=== PATIENT | male | born 1980 | race Caucasian/White ===

== ENCOUNTER 2017-03-08 06:24 | Emergency (ER) | payer OTHER ==
[2017-03-08 07:00] VITALS: BP 123/91; PULSE 81; TEMP 98.6; BMI 27.5
[2017-03-08] MEDS ORDERED: IBUPROFEN 400 MG TABLET (FP) PO ONE ×2 (07:15→07:20)
--- NOTE | 2017-03-08 07:20 | PDOC ---
History of Present Illness - General Chief Complaint: Back Pain Stated Complaint: LOWER BACK PAIN Time Seen by Provider: 03/08/17 07:04 History Source: Patient Exam Limitations: No Limitations - History of Present Illness Initial Comments: 03/08/17 07:15 Patient is a 36M with no significant medical history here today complaining of lower back pain for the past hour. He was lifting a heavy bag at work when he says his back went out. He denies focal weakness, nausea, vomiting, fevers, chills, urinary incontinence/retention, and saddle anesthesia. He reports being able to ambulate after the injury, and is able to walk now. He denies chest pain , shortness of breath, headache, and abdominal pain. Patient reports that he came to the ED because his work requires him to. Past History - Past Medical History Allergies/Adverse Reactions: Allergies Allergy/AdvReac Type Severity Reaction Status Date / Time No Known Allergies Allergy Verified 05/25/12 10:25 Home Medications: Ambulatory Orders No Home Medications 0 dose .ROUTE UTDICT 05/25/12 - Immunization History Td Vaccination: Yes Immunization Up to Date: Yes - Psycho/Social/Smoking Cessation Hx Anxiety: No Suicidal Ideation: No Smoking Status: Yes Smoking History: Never smoked Have you smoked in the past 12 months: No Number of Cigarettes Smoked Daily: 0 Cigars Per Day: 0 Information on smoking cessation initiated: No Hx Alcohol Use: No Drug/Substance Use Hx: No Review of Systems - Review of Systems Comments:: 03/08/17 07:21 GENERAL/CONSTITUTIONAL: No fever or chills. No weakness. HEAD, EYES, EARS, NOSE AND THROAT: No change in vision. No ear pain or discharge. No sore throat. CARDIOVASCULAR: No chest pain or shortness of breath RESPIRATORY: No cough, wheezing, or hemoptysis. GASTROINTESTINAL: No nausea, vomiting, diarrhea or constipation. GENITOURINARY: No dysuria, frequency, or change in urination. MUSCULOSKELETAL: No joint or muscle swelling or pain. Positive for back pain. SKIN: No rash NEUROLOGIC: No headache, vertigo, loss of consciousness, or change in strength/ sensation. ENDOCRINE: No increased thirst. No abnormal weight change ALLERGIC/IMMUNOLOGIC: No hives or skin allergy. *Physical Exam - Vital Signs Last Vital Signs Temp Pulse Resp BP Pulse Ox 98.6 F 81 19 123/91 100 03/08/17 06:39 03/08/17 06:39 03/08/17 06:39 03/08/17 06:39 03/08/17 06:39 - Physical Exam Comments: 03/08/17 07:21 GENERAL: Awake, alert, and fully oriented, in no acute distress HEAD: No signs of trauma, normocephalic, atraumatic EYES: PERRLA, EOMI, sclera anicteric, conjunctiva clear ENT: Auricles normal inspection, hearing grossly normal, nares patent, oropharynx clear without exudates. Moist mucosa NECK: Normal ROM, supple, no lymphadenopathy, JVD, or masses BACK: Tender in paraspinal lumbar area LUNGS: No distress, speaks full sentences, clear to auscultation bilaterally HEART: Regular rate and rhythm, normal S1 and S2, no murmurs, rubs or gallops, peripheral pulses normal and equal bilaterally. ABDOMEN: Soft, nontender, normoactive bowel sounds. No guarding, no rebound. No masses EXTREMITIES: Normal inspection, Normal range of motion, no edema. No clubbing or cyanosis. NEUROLOGICAL: Cranial nerves II through XII grossly intact. Normal speech, normal gait, no focal sensorimotor deficits SKIN: Warm, Dry, normal turgor, no rashes or lesions noted. Medical Decision Making - Medical Decision Making 03/08/17 07:22 36M with no significant medical history here today complaining of back pain. No red flags, vital signs stable. Patient is ambulating and follow-up already planned. Will treat with ibuprofen and discharge. *DC/Admit/Observation/Transfer Diagnosis at time of Disposition: Back pain - Discharge Dispostion Disposition: HOME Condition at time of disposition: Good Admit: No - Patient Instructions Printed Discharge Instructions: DI for Low Back Pain
--- NOTE | 2017-03-08 07:23 | PDOC ---
Attending Attestation - Resident Resident Name: Alfred Queen - ED Attending Attestation I have performed the following: I have examined & evaluated the patient, The case was reviewed & discussed with the resident, I agree w/resident's findings & plan, Exceptions are as noted - HPI HPI: 03/08/17 07:21 36-year-old male with history of herniated lumbar disks presents with acute exacerbation of his lower back pain. Patient was at work when he lifted and bent his back and developed worsening chronic pain. Patient states that this is his usual lower back pain. Denies any urinary incontinence, bowel incontinence, anesthesia, numbness or weakness. Patient typically goes to his chiropractor for follow-up. He is wishing to go straight there right now. Came to the ED as his work requires him to do so. - Physicial Exam PE: 03/08/17 07:22 GENERAL: Awake, alert, and fully oriented. Mildly uncomfortable. HEAD: No signs of trauma EYES: PERRLA, EOMI, sclera anicteric, conjunctiva clear ENT: Auricles normal inspection, hearing grossly normal, nares patent, oropharynx clear without exudates. NECK: Normal ROM, supple, no lymphadenopathy, JVD, or masses BACK: TTP ~L5-S1. No step offs appreciated. EXTREMITIES: Normal range of motion, no edema. No clubbing or cyanosis. No cords, erythema, or tenderness NEUROLOGICAL: Cranial nerves II through XII grossly intact. Normal speech, normal gait SKIN: Warm, Dry, normal turgor, no rashes or lesions noted. - Medical Decision Making 03/08/17 07:22 Vital Signs Temp Pulse Resp BP Pulse Ox 98.6 F 81 19 123/91 100 03/08/17 06:39 03/08/17 06:39 03/08/17 06:39 03/08/17 06:39 03/08/17 06:39 This is likely muscle skeletal pain. NSAIDs and follow-up with his doctors.
== END 2017-03-08 07:35 | disposition home or self-care (01) ==
LOC: JER 06:24
DX: M54.5 Low back pain (principal); X50.0XXA Overexertion from strenuous movement or load, initial encounter; Y93.H9 Activity, other involving exterior property and land maintenance, building and construction; Y92.89 Other specified places as the place of occurrence of the external cause; Y99.0 Civilian activity done for income or pay
CPT/HCPCS: 99282-25

== ENCOUNTER 2018-07-14 10:34 | Emergency (ER) | payer OTHER ==
--- NOTE | 2018-07-14 10:49 | PDOC ---
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 Pt states when he stepped down from the back of the truck ( approximately ~3 feet off the ground), he immediately felt pain in the back of his R knee (points to popliteal region). He was able to ambulate, but felt that he had some difficulty putting full weight on the R leg. The pain is sharp, exacerbated by touching the area and flexing his knee. The pain does not radiate. He denies loss of strength or sensation in the leg. He denies any falling, and does not have neck or back pain, nor incontinence of urine/stool. Pt denies any fevers/chills, headache, vision changes, syncope, chest pain, palpitations, SOB, nausea/vomiting, abdominal pain, urinary symptoms, diarrhea/ constipation, or joint swelling. Social: Pt denies any cigarette, alcohol, or drug use. Pt denies any recent travel or sick contacts. Surgical: "reconstruction" of his L index fingertip after an injury. No other orthopedic surgeries or knee/ligamentous injuries. Family: no relevant history. 07/14/18 12:26 Past History - Travel Traveled outside of the country in the last 30 days: No Close contact w/someone who was outside of country & ill: No - Past Medical History Allergies/Adverse Reactions: Allergies Allergy/AdvReac Type Severity Reaction Status Date / Time No Known Allergies Allergy Verified 07/14/18 10:34 Home Medications: Ambulatory Orders No Home Medications 0 dose .ROUTE UTDICT 05/25/12 Diabetes: No HTN: No Hypercholesterolemia: No - Surgical History Orthopedic Surgery: No - Immunization History Td Vaccination: Yes Immunization Up to Date: Yes - Suicide/Smoking/Psychosocial Hx Smoking Status: Yes Smoking History: Never smoked Have you smoked in the past 12 months: No Number of Cigarettes Smoked Daily: 0 Cigars Per Day: 0 Hx Alcohol Use: No Drug/Substance Use Hx: No Review of Systems - Review of Systems Able to Perform ROS?: Yes Is the patient limited Hungarian proficient: No Constitutional: No: Chills, Diaphoresis, Fever, Loss of Appetite, Weakness HEENTM: No: Recent change in vision, Nose Congestion, Throat Pain Respiratory: No: Cough, Shortness of Breath Cardiac (ROS): No: Chest Pain, Lightheadedness, Palpitations, Syncope ABD/GI: No: Constipated, Diarrhea, Nausea, Poor Appetite, Poor Fluid Intake, Vomiting : No: Burning, Dysuria, Hematuria, Urgency Musculoskeletal: Yes: See HPI, Joint Pain. No: Back Pain, Joint Swelling, Muscle Pain, Muscle Weakness, Joint Stiffness Integumentary: No: Bruising, Change in Color, Rash Neurological: No: Numbness, Paresthesia, Tingling, Weakness, Unsteady Gait, Ataxia, Dizziness Psychiatric: No: Change in Appetite Endocrine: No: Increased Urine, Change in Weight Hematologic/Lymphatic: No: Anemia, Blood Clots, Easy Bleeding, Easy Bruising All Other Systems: Reviewed and Negative *Physical Exam - Physical Exam Comments: Vitals stable, pt afebrile. Pt was able to ambulate into the department, although favoring the L leg. PE showed pt alert and oriented. truck trailer mechanic generally intact, muscular strength and sensation intact. Full active and passive ROM at the hip, knee, and ankle joints b/l. Tenderness to palpation in the R mid popliteal fossa only, no obvious edema. DP pulses strong b/l, no cyanosis or pallor of the LE skin. Anterior and posterior drawer tests WNL. Gastroc and achilles tendon intact. Patellar reflexes 2+ b/l. No midline spinal or neck tenderness to palpation. No joint swelling or erythema. Clear heart and lung sounds, no JVD, b/l pedal edema, or heart murmur. No abdominal or CVA tenderness to palpation, no rebound, no guarding. Skin without jaundice or rashes. 07/14/18 12:28 General Appearance: Yes: Nourished, Appropriately Dressed. No: Apparent Distress Medical Decision Making - Medical Decision Making Pt was seen at bedside, also will be seen by attending Dr. Jung. 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 Pt states when he stepped down from the back of the truck (approximately ~3 feet off the ground), he immediately felt pain in the back of his R knee (points to popliteal region). He was able to ambulate, but felt that he had some difficulty putting full weight on the R leg. The pain is sharp, exacerbated by touching the area and flexing his knee. The pain does not radiate. He denies loss of strength or sensation in the leg. He denies any falling, and does not have neck or back pain, nor incontinence of urine/stool. Pt denies any fevers/chills, headache, vision changes, syncope, chest pain, palpitations, SOB, nausea/vomiting, abdominal pain, urinary symptoms, diarrhea/ constipation, or joint swelling. Vitals stable, pt afebrile. Pt was able to ambulate into the department, although favoring the L leg. PE showed pt alert and oriented. truck trailer mechanic generally intact, muscular strength and sensation intact. Full active and passive ROM at the hip, knee, and ankle joints b/l. Tenderness to palpation in the R mid popliteal fossa only, no obvious edema. DP pulses strong b/l, no cyanosis or pallor of the LE skin. Anterior and posterior drawer tests WNL. Gastroc and achilles tendon intact. Patellar reflexes 2+ b/l. No midline spinal or neck tenderness to palpation. No joint swelling or erythema. Clear heart and lung sounds, no JVD, b/l pedal edema, or heart murmur. No abdominal or CVA tenderness to palpation, no rebound, no guarding. Skin without jaundice or rashes. Considering ligamentous injury (PCL) vs muscle/gastroc strain vs bursitis. Unlikely any popliteal artery injury, as pt has good peripheral pulses, no cyanosis/pallor. Unlikely ligamentous or gastroc tear, as pt has full ROM and can weight-bear/ambulate without much difficulty. Ordered work-up including 2-view x-ray of the knee. Provided 975 mg PO tylenol for improvement of pain control. Will continue to reassess pt and monitor for symptomatic improvement. 07/14/18 11:21 X-ray appears to have sesamoid bone in popliteal region, no obvious avulsion fractures present. Pain well-controlled with tylenol. Pt advised to use OTC medications (tylenol/ ibuprofen) at home for pain. Pt provided knee immobilizer and crutches, pt advised to weight-bear as tolerated. Pt states he can return to work on "light duty" with no lifting or straining. Pt can be discharged to home with follow-up. Pt advised to follow-up with PCP in 1-2 days and has been referred to orthopedics (Dr. Barnes on-call). Strict return precautions provided with pt understanding. 07/14/18 12:20 *DC/Admit/Observation/Transfer Diagnosis at time of Disposition: Popliteal pain - Discharge Dispostion Disposition: HOME Condition at time of disposition: Good Decision to Admit order: No - Referrals Referrals: [facility] [place] [Provider Group] Benjamin Barnes DO [Staff Physician] - - Patient Instructions Printed Discharge Instructions: DI for Knee Pain Additional Instructions: You were seen in the ER today for knee pain. The results of your imaging today did not appear to show any acute fracture. Please follow-up with your primary care doctor and the orthopedist (Dr. Barnes) within 1-2 days to discuss your visit and make sure your symptoms have improved. Please return to the ER if you have any worsening pain, inability to bear weight, development of fevers or chills, loss of consciousness, inability to tolerate food or fluids, or any other concerns. You can continue to use ibuprofen and tylenol as needed for pain. You can use hot and cold compresses as needed for swelling. Please rest, ice, and elevate the knee to prevent swelling. We have provided a knee immobilizer, and please use crutches with weight-bearing as tolerated, until you can see the orthopedist (Dr. Barnes). - Post Discharge Activity
[2018-07-14 10:52] VITALS: BP 118/88; PULSE 85; TEMP 98.7; BMI 28.4
[2018-07-14] MEDS ORDERED: ACETAMINOPHEN 325 MG TABLET (FP) PO ONE (11:14)
[2018-07-14] MEDS ORDERED: ACETAMINOPHEN 325 MG TABLET (FP) ONE (11:23)
--- NOTE | 2018-07-14 11:43 | PDOC ---
Attending Attestation - Resident Resident Name: Nely Merchant - ED Attending Attestation I have performed the following: I have examined & evaluated the patient, The case was reviewed & discussed with the resident, I agree w/resident's findings & plan, Exceptions are as noted - HPI HPI: 07/14/18 11:36 38 M with no PMH presenting with R knee pain x 1 day. 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 Denies falling or any other trauma to the knee. Pt endorses pain with weight bearing though he is still able to ambulate unassisted. Denies pain in his ankle or hip. - Physicial Exam PE: 07/14/18 11:38 "GENERAL: Awake, alert, and fully oriented, in no acute distress. HEAD: No signs of trauma EYES: PERRLA, EOMI, sclera anicteric, conjunctiva clear ENT: Auricles normal inspection, hearing grossly normal, nares patent, oropharynx clear without exudates. Moist mucosa NECK: Nontender, no stepoffs, Normal ROM, supple, no lymphadenopathy, JVD, or masses LUNGS: Breath sounds equal, clear to auscultation bilaterally. No wheezes, and no crackles HEART: Regular rate and rhythm, normal S1 and S2, no murmurs, rubs or gallops ABDOMEN: Soft, nontender, normoactive bowel sounds. No guarding, no rebound. No masses EXTREMITIES: + TTP posterior knee, no effusion, normal distal pulses, no pulsatile mass, no joint laxity, no bony tenderness, no ankle tenderness, no hip tenderness, full ROM all joints NEUROLOGICAL: Cranial nerves II through XII intact. 5/5 strength and sensation in all extremities, Normal speech, normal gait, normal cerebellar function SKIN: Warm, Dry, normal turgor, no rashes or lesions noted. - Medical Decision Making 07/14/18 11:40 38 M with posterior R knee pain after stepping off garbage truck. - XR knee - f/u ortho
== END 2018-07-14 12:25 | disposition home or self-care (01) ==
LOC: FER 10:34
PROC: 2W3QX1Z Immobilization of Right Lower Leg using Splint (ICD-10-PCS; principal; 2018-07-14)
DX: M25.561 Pain in right knee (principal)
CPT/HCPCS: 73560-TC-RT-FY; 99282-25

== ENCOUNTER 2019-05-11 04:10 | Emergency (ER) | payer BC, OTHER ==
[2019-05-11 04:33] VITALS: TEMP 98.2; BMI 27.4
[2019-05-11] MEDS ORDERED: LIDOCAINE 5% TOPICAL PATCH TP ONE (04:33)
[2019-05-11] MEDS ORDERED: ACETAMINOPHEN 325 MG TABLET (FP) PO ONE (04:36)
--- NOTE | 2019-05-11 04:50 | PDOC ---
Attending Attestation - Resident Resident Name: Naveen Jay - ED Attending Attestation I have performed the following: I have examined & evaluated the patient, The case was reviewed & discussed with the resident, I agree w/resident's findings & plan - HPI HPI: 05/11/19 06:42 see resident hpi - Physicial Exam PE: 05/11/19 06:42 see resident exam - Medical Decision Making 05/11/19 06:42 39-year-old male with atraumatic low back pain and history of lumbar ago Patient improved after muscle relaxants and anti-inflammatories Ambulatory post medication Requesting to go home, will follow-up outpatient
[2019-05-11] MEDS ORDERED: CYCLOBENZAPRINE HCL 10 MG TABLET (FP) PO ONE (04:51)
[2019-05-11] MEDS ORDERED: ACETAMINOPHEN 325 MG TABLET (FP) ONE (04:51)
[2019-05-11] MEDS ORDERED: LIDOCAINE 5% TOPICAL PATCH ONE (04:52)
[2019-05-11] MEDS ORDERED: CYCLOBENZAPRINE HCL 10 MG TABLET (FP) ONE (04:52)
--- NOTE | 2019-05-11 04:57 | PDOC ---
History of Present Illness - General Chief Complaint: Back Pain Stated Complaint: BACK PAIN Time Seen by Provider: 05/11/19 04:18 Past History - Past Medical History Allergies/Adverse Reactions: Allergies Allergy/AdvReac Type Severity Reaction Status Date / Time No Known Allergies Allergy Verified 07/14/18 10:34 Home Medications: Ambulatory Orders No Home Medications 0 dose .ROUTE UTDICT 05/25/12 COPD: No Diabetes: No HTN: No Hypercholesterolemia: No - Surgical History Orthopedic Surgery: No - Immunization History Td Vaccination: Yes Immunization Up to Date: Yes - Psycho Social/Smoking Cessation Hx Smoking Status: Yes Smoking History: Never smoked Have you smoked in the past 12 months: No Number of Cigarettes Smoked Daily: 0 Cigars Per Day: 0 Hx Alcohol Use: No Drug/Substance Use Hx: No *Physical Exam - Vital Signs Last Vital Signs Temp Pulse Resp BP Pulse Ox 98.2 F 73 18 113/70 99 05/11/19 04:25 05/11/19 04:25 05/11/19 04:25 05/11/19 04:25 05/11/19 04:25 Medical Decision Making - Medical Decision Making 05/11/19 04:47 HPI: 39M PMH herniated discs ([facility]) c/o sudden onset low back pain that woke up him from sleep tonight. Pain worse w/ movement w/ radiation down the legs. Atraumatic. Sees a pain specialist for the herniated discs and receives epidural injections. Denies numbness, tingling, weakness, saddle anesthesia, bladder/bowel incontinence. Denies f/c, malignancy, IVDU. Took 5 advil and tiger balm to try to alleviate pain. ROS: CONSTITUTIONAL: Denies F / C RESP: Denies SOB CARD: Denies chest pain, palpitations GI: Denies N / V / D, abdominal pain, inability to tolerate PO. Denies bowel incontinence : Denies dysuria, hematuria, frequency. Denies bladder incontinence SKIN: Denies rashes NEURO: Denies numbness, tingling, weakness MSK: Endorses back pain PE: VS WNL GEN: well developed. Uncomfortable, visibly in pain, nontoxic. AAOx3 HEENT: NC/AT. No facial asymmetry. Moist mucous membranes. Normal voice. Supple neck w/ FROM. CV: S1/S2, RRR, no m/r/g LUNG: CTAB, no wheezes, crackles, rales, rhonchi. GI: soft, ndnt, +BS, no guarding, no rebound. EXTREMITIES: No obvious deformities of all extremities. SKIN: warm, dry, normal turgor PSYCH: normal mood and affect NEURO: 5/5 strength UE and LE b/l with symmetric sensation. Ambulating. Exam limited by pain. BACK: No obvious deformities, no step offs, no midline TTP. No signs of trauma. MDM: 39M with herniated discs presenting with sudden onset low back pain w/ radiation down the legs. Atraumatic, afebrile, no IVDU. Nontender exam. Likely MSK or exacerbation of herniated disc. Unlikely infectious, cauda equina , or malignant process. - CT Lumbar spine - flexeril, tylenol, lidocaine patch 05/11/19 05:24 pain not decreased adding 10mg oxycodone 05/11/19 05:46 decadron shot pt is ambulating in ED pt does not wish to lay down in ED given no alarm findings, will forgo imaging dc home w/ pain and neurosurgical f/u; strict return precautions Discharge - Discharge Information Problems reviewed: Yes Clinical Impression/Diagnosis: Back pain Qualifiers: Back pain location: low back pain Chronicity: acute Back pain laterality: bilateral Sciatica presence: with sciatica Sciatica laterality: sciatica laterality unspecified Qualified Code(s): M54.40 - Lumbago with sciatica, unspecified side Condition: Stable Disposition: HOME - Admission No - Follow up/Referral Referrals: Bubba Newton MD [Staff Physician] - - Patient Discharge Instructions Patient Printed Discharge Instructions: DI for Low Back Pain Additional Instructions: See your Back specialist in the next 1 day. We are referring you to neurosurgery; follow up with them in the next 1-4 days. IMMEDIATELY return to the nearest Emergency Department if you experience any of the following: - worsening pain - numbness, tingling, or weakness of the legs - incontinence - ANYTHING that concerns you - Post Discharge Activity
[2019-05-11] MEDS: CYCLOBENZAPRINE HCL 5 MG TABLET PO ONE ×2 (05:01→05:02)
[2019-05-11] MEDS ORDERED: oxyCODONE HCL 5 MG TABLET PO ONE (05:21)
[2019-05-11] MEDS ORDERED: oxyCODONE HCL 5 MG TABLET ONE (05:25)
[2019-05-11] MEDS ORDERED: DEXAMETHASONE SOD PHOSPHATE 10 MG/1 ML VIAL IM ONE (05:40)
[2019-05-11] MEDS ORDERED: DEXAMETHASONE SOD PHOSPHATE 10 MG/1 ML VIAL ONE (05:48)
[2019-05-11 05:56] VITALS: BP 118/73; PULSE 76
[2019-05-11] MEDS ORDERED: LIDOCAINE PATCH REMOVAL MC SCH (22:00)
== END 2019-05-11 05:53 | disposition home or self-care (01) ==
LOC: JER 04:10
PROC: 3E023GC Introduction of Other Therapeutic Substance into Muscle, Percutaneous Approach (ICD-10-PCS; principal; 2019-05-11)
DX: M54.40 Lumbago with sciatica, unspecified side (principal); M51.9 Unspecified thoracic, thoracolumbar and lumbosacral intervertebral disc disorder
CPT/HCPCS: 99281-25; J1100

== ENCOUNTER 2024-02-15 06:21 | Emergency (ER) | payer BC, OTHER ==
[2024-02-15 06:29] VITALS: BP 124/89; PULSE 60; RESP 18; TEMP 98.7; BMI 27.0
== END 2024-02-15 08:38 | disposition home or self-care (01) ==
LOC: JER 06:21
DX: T65.891A Toxic effect of other specified substances, accidental (unintentional), initial encounter (principal); H10.213 Acute toxic conjunctivitis, bilateral
CPT/HCPCS: 99283-25